=== PATIENT | female | born 1970 | race Two or more races ===

== ENCOUNTER 2023-02-21 09:41 | Emergency (ER) | payer SELFPAY ==
[~2023-02-21] VITALS: Ht 162.6 cm; Wt 79.4 kg
[2023-02-21] MEDS ORDERED: TDAP [DIPH/PERTUSSIS/TET] 0.5 ML VIAL IM ONE ×2 (10:00→10:16)
--- NOTE | 2023-02-21 10:01 | NUR ---
Patient AOx4, able to expres her concerns. Patient states she was at her family memebers home helping out with gardening and she accidentally cut her fingers. Left hand, mddle and right finger. Discussed plan of care, jason verbalized agreement.
--- NOTE | 2023-02-21 11:29 | NUR ---
Assisted Dr with suturing, educated patient on importance of discharge care and follow up needs. Patient verbalized agreement.
[2023-02-21] MEDS ORDERED: HYDROCODONE/APAP 5/325MG TABLET PO ONE (11:30)
[2023-02-21] MEDS ORDERED: HYDROCODONE/APAP 5/325MG TABLET ONE (11:31)
[2023-02-21] MEDS ORDERED: TRAM50TA2 PO (11:54)
[2023-02-21] MEDS ORDERED: CEPH500C2 PO (11:54)
[2023-02-21] MEDS ORDERED: CEPHALEXIN MONOHYDRATE 500 MG CAPSULE PO ONE ×2 (12:00→12:01)
--- NOTE | 2023-02-21 12:03 | NUR ---
GAVE A PRINT COPY OF THE X-RAY TO PT.
[2023-02-21 12:04] VITALS: BP 130/78
== END 2023-02-21 12:06 | disposition home or self-care (01) ==
LOC: ER 09:57
DX: S62.635B Displaced fracture of distal phalanx of left ring finger, initial encounter for open fracture (principal); W31.89XA Contact with other specified machinery, initial encounter; Y93.89 Activity, other specified; Y92.89 Other specified places as the place of occurrence of the external cause; Y99.8 Other external cause status
CPT/HCPCS: 73130-TC; 90715